=== PATIENT | female | born 1945 | race Native Hawaiian/Other Pacific Islander ===

== ENCOUNTER 2018-09-20 09:17 | Outpatient (CLI) | payer MEDICARE, OTHER | END 2018-09-20 09:18 | disposition home or self-care (01) | LOC: C.MAMMO 09:18 ==

== ENCOUNTER 2018-10-24 08:57 | Outpatient (CLI) | payer MEDICARE, OTHER | END 2018-10-24 08:58 | disposition home or self-care (01) | LOC: C.VASC 08:57 | DX: M79.669 Pain in unspecified lower leg (principal) ==